=== PATIENT | male | born 1960 | race Caucasian/White ===

== ENCOUNTER 2017-05-20 12:27 | Day surgery (SDC) | payer OTHER ==
[~2017-05-20] VITALS: Ht 152.4 cm; Wt 80.7 kg
[2017-05-20] MEDS ORDERED: LASIX (13:28)
[2017-05-20] MEDS ORDERED: LOSARTAN (13:28)
[2017-05-20 13:37] VITALS: Ht 152.4 cm; Wt 80.7 kg
[2017-05-20 14:05] VITALS: BP 125/60; PULSE 63; RESP 18
[2017-05-20] MEDS ORDERED: PROPOFOL 20 ML ONE (14:41)
[2017-05-20] MEDS ORDERED: LIDOCAINE 2% (SDV) 5 ML INJ ONE (14:41)
--- NOTE | 2017-05-20 14:59 | OPPN ---
Date/Time of Note Date/Time of Note DATE: 05/20/17 TIME: 14:55 Proc Note GI Procedure date: May 20, 2017 Pre-procedure Diagnosis * History of HCV cirrhosis/surveillance for varices Post-procedure Diagnosis Assessment: * Grade II/IV esophageal varices * Moderate distal esophagitis * Medium sized fundal gastric varices * Erosive antral gastritis. Rule out H. pylori infection. Biopsies obtained Plan: * PPI therapy * Beta-abhi therapy * Review pathology * Consider TIPS for decompression * Surveillance EGD in 3 months Operation Performed * EGD with biopsies Surgeon: CASEY BELCHER MD Anesthesia Type: MAC Estimated blood loss: none Transfusion Required: no Specimen: none Grafts/Implants: none Complications: no Pt Condition post procedure: stable Disposition: PACU Procedure Description After informed consent, with the patient/relatives understanding the procedure, its indications, potential risks and complications, including but not limited to : allergic reaction, bleeding, perforation or infection, and after all pertinent questions were answered to the patients satisfaction, the patient/ relatives signed witnessed informed consent. Following this, premedication was administered slowly IV push under careful cardiovascular and respiratory monitoring with pulse oximetry, automatic blood pressure, and glue cook. Once the sedative effect was achieved the patient was place in the left lateral decubitus, the panendoscope was introduced and advanced under visual control. Careful examination of the upper gastrointestinal tract, both on insertion as well as withdrawal of the instrument disclosing the following findings: ESOPHAGUS: the mucosa of the entire esophagus was carefully examined and showed the following findings: There are grade II/IV esophageal varices. No intervention. There is erythema and edema of the mucosa at the e.g. junction. Otherwise the mucosa appears within normal limits. There is no evidence of neoplasm, or stricture. No Hiatal Hernia identified. STOMACH: Upon entrance to the stomach air was insufflated, the gastric knight distended normally. The mucosa of the fundus, body and antrum of the stomach was carefully examined both head-on and on retroflexion, and showed the following findings: There are at least medium sized fundal gastric varices with no stigmata. There is erythema and edema with superficial erosion of the mucosa of the antrum. Biopsies were obtained in a limited fashion to rule out H. pylori infection. Otherwise the mucosa appears within normal limits with no abnormalities. There is no evidence of ulcers or neoplasm. PYLORUS: The pylorus was carefully examined and showed the following findings: []the pylorus appears patent and within normal limits, with no evidence of gastric outlet obstruction. DUODENUM: The duodenal mucosa was carefully examined in the duodenal bulb as well as the second portion of the duodenum and showed the following findings: []the mucosa appears unremarkable with no evidence of duodenitis, ulcer or neoplasm. CASEY BELCHER MD May 20, 2017 14:59
[2017-05-20 15:22] VITALS: BP 138/74; PULSE 64; RESP 14
== END 2017-05-20 16:05 | disposition home or self-care (01) ==
LOC: GIL 12:27
PROVIDERS: ATTEND Internal Medicine Gastroenterology
DX: K29.30 Chronic superficial gastritis without bleeding (principal); K20.8 Other esophagitis; I85.00 Esophageal varices without bleeding
CPT/HCPCS: 43239; 88305; 88312; Z7610

== ENCOUNTER 2018-03-11 17:10 | Emergency (ER) | END 2018-03-11 19:13 | disposition left against medical advice (07) ==

== ENCOUNTER 2018-05-05 04:27 | Emergency (ER) | END 2018-05-05 09:40 | disposition home or self-care (01) ==

== ENCOUNTER 2018-05-18 20:22 | Inpatient (IN) | END 2018-05-21 14:25 | disposition home or self-care (01) | DRG 443 ==